=== PATIENT | female | born 1980 | race Caucasian/White ===

== ENCOUNTER → 2016-06-24 | Outpatient (CLI) | payer BC, OTHER ==
--- NOTE | 2016-06-28 12:08 | MY ---
EXAMINATION: Bilateral digital mammography utilizing CAD with left breast ultrasound. HISTORY: Pain. No comparisons made available. FINDINGS: Bilateral heterogeneously dense breast tissue. There is a two view asymmetry with a few internal calcifications noted within the outer left breast, a clip is noted within this region, likely the site of previous biopsy. No suspicious calcifications, masses or architectural distortions. No pathologic appearing lymph nodes, no abnormal skin thickening or nipple inversion. CAD highlighted regions appear normal at this time. Grayscale and color Doppler images obtained of the left breast demonstrates no abnormal mass or flui d collection. No skin thickening or abnormal color Doppler flow. IMPRESSION: BI-RADS category II - Benign finding. Continued screening according to ACR-ACS guidelines suggested. THE FALSE-NEGATIVE RATE OF MAMMOGRAM IS APPROXIMATELY 10%. MANAGEMENT OF A PALPABLE ABNORMALITY MUST BE BASED UPON CLINICAL GROUNDS. SENSITIVITY FOR DETECTION OF ABNORMALITIES IN DENSE BREASTS IS LOW. NOTE: A letter will be sent to the patient regarding findings.
== END ==
LOC: MW.MAM 11:23
PROVIDERS: ATTEND Nurse Practitioner Women's Health
DX: N64.4 Mastodynia (principal); N63 Unspecified lump in breast
CPT/HCPCS: 76641; G0204

== ENCOUNTER 2017-11-15 23:06 | Emergency (ER) | payer BC ==
--- NOTE | 2017-11-15 23:25 | EDM.PDOC ---
ED HPI GENERAL MEDICAL PROBLEM - General Chief Complaint: Chest Pain Stated Complaint: CHEST PAIN Time Seen by Provider: 11/15/17 23:17 - History of Present Illness INITIAL COMMENTS - FREE TEXT/NARRATIVE: HISTORY AND PHYSICAL: History of present illness: Patient is a 37-year-old female presents with a concern of chest pain. Patient states she is at home and felt anxious took her blood pressure noted to be 170/ 50 her mother has had a history of a stroke she has a home blood pressure machine that she is to monitor blood pressure is in no associated diaphoresis nausea vomiting palpitations other concerns on arrival her blood pressure 150/90 Review of systems: As per history of present illness and below otherwise all systems reviewed and negative. Past medical history: As per history of present illness and as reviewed below otherwise noncontributory. Surgical history: As per history of present illness and as reviewed below otherwise noncontributory. Social history: No reported history of drug or alcohol abuse. Family history: As per history of present illness and as reviewed below otherwise noncontributory. Physical exam: HEENT: Atraumatic, normocephalic, pupils reactive, negative for conjunctival pallor or scleral icterus, mucous membranes moist, throat clear, neck supple, nontender, trachea midline. Lungs: Clear to auscultation, breath sounds equal bilaterally, chest nontender. Heart: S1S2, regular, negative for clicks, rubs, or JVD. Abdomen: Soft, nondistended, nontender. Negative for masses or hepatosplenomegaly. Negative for costovertebral tenderness. Pelvis: Stable nontender. Genitourinary: Deferred. Rectal: Deferred. Extremities: Atraumatic, negative for cords or calf pain. Neurovascular unremarkable. Neuro: Awake, alert, oriented. Cranial nerves II through XII unremarkable. Cerebellum unremarkable. Motor and sensory unremarkable throughout. Exam nonfocal. Diagnostics: CBC CMP PT/INR troponin chest x-ray EKG Therapeutics: Monitor pulse oximetry Impression: #1 atypical chest pain #2 medical screening exam Definitive disposition and diagnosis as appropriate pending reevaluation and review of above. chest pain Pain Score (Numeric/FACES): 5 - Related Data Allergies Allergy/AdvReac Type Severity Reaction Status Date / Time amoxicillin Allergy Rash Verified 11/15/17 23:10 Sulfa (Sulfonamide Allergy Rash Verified 11/15/17 23:10 Antibiotics) sulfamethoxazole Allergy Vomiting Verified 11/15/17 23:10 [From Septra] trimethoprim [From ] Allergy Vomiting Verified 11/15/17 23:10 Home Meds: Home Meds Nitrofurantoin Macrocrystal [Macrodantin] 1 cap PO DAILY 11/15/17 [History] Past Medical History HEENT History: Reports: None Cardiovascular History: Reports: None Respiratory History: Reports: None Gastrointestinal History: Reports: None Genitourinary History: Reports: None [employer] History: Reports: Musculoskeletal History: Reports: None Neurological History: Reports: None Psychiatric History: Reports: None Endocrine/Metabolic History: Reports: None Hematologic History: Reports: None Immunologic History: Reports: None Oncologic (Cancer) History: Reports: None Dermatologic History: Reports: None - Infectious Disease History Infectious Disease History: Reports: None - Past Surgical History Head Surgeries/Procedures: Reports: None Female Surgical History: Reports: Hysterectomy, Other (See Below) Other Female Surgeries/Procedures: pelvic floor dysfuncton. laparoscopy Social & Family History - Family History Family Medical History: Noncontributory Neurological: Reports: CVA, Other (See Below) Other Neurological Family History: mother - Tobacco Use Smoking Status *Q: Never Smoker - Caffeine Use Caffeine Use: Reports: Coffee - Recreational Drug Use Recreational Drug Use: No ED ROS GENERAL - Review of Systems Review Of Systems: ROS reveals no pertinent complaints other than HPI. ED EXAM, GENERAL - Physical Exam Exam: See Below (See dictation) Course - Vital Signs Last Recorded V/S: Last Vital Signs Temp 36.7 C 11/15/17 23:10 Pulse 67 11/15/17 23:10 Resp 18 11/15/17 23:10 BP 157/90 H 11/15/17 23:10 Pulse Ox 98 11/15/17 23:10 - Orders/Labs/Meds Orders: Active Orders 24 hr Category Date Time Status EKG Documentation Completion [RC] STAT Care 11/15/17 23:19 Active Chest 1V Frontal [CR] Stat Exams 11/15/17 23:18 Ordered CBC WITH AUTO DIFF [HEME] Stat Lab 11/15/17 23:18 Ordered COMPREHENSIVE METABOLIC PN,CMP [CHEM] Stat Lab 11/15/17 23:18 Ordered INR,PT,PROTHROMBIN TIME [COAG] Stat Lab 11/15/17 23:18 Ordered TROPONIN I [CHEM] Stat Lab 11/15/17 23:18 Ordered Departure - Departure Time of Disposition: 23:24 Disposition: Home, Self-Care 01 Condition: Good Clinical Impression: Atypical chest pain - Discharge Information *PRESCRIPTION DRUG MONITORING PROGRAM REVIEWED*: Not Applicable *COPY OF PRESCRIPTION DRUG MONITORING REPORT IN PATIENT DARYA: Not Applicable Referrals: PCP,None [Primary Care Provider] - Additional Instructions: The following information is given to patients seen in the emergency department who are being discharged to home. This information is to outline your options for follow-up care. We provide all patients seen in our emergency department with a follow-up referral. The need for follow-up, as well as the timing and circumstances, are variable depending upon the specifics of your emergency department visit. If you don't have a primary care physician on staff, we will provide you with a referral. We always advise you to contact your personal physician following an emergency department visit to inform them of the circumstance of the visit and for follow-up with them and/or the need for any referrals to a consulting specialist. The emergency department will also refer you to a specialist when appropriate. This referral assures that you have the opportunity for followup care with a specialist. All of these measure are taken in an effort to provide you with optimal care, which includes your followup. Under all circumstances we always encourage you to contact your private physician who remains a resource for coordinating your care. When calling for followup care, please make the office aware that this follow-up is from your recent emergency room visit. If for any reason you are refused follow-up, please contact the [facility] emergency department at and asked to speak to the emergency department charge nurse. Follow-up primary medical doctor as discussed return as needed as discussed - My Orders Last 24 Hours: My Active Orders 11/15/17 23:18 Chest 1V Frontal [CR] Stat CBC WITH AUTO DIFF [HEME] Stat COMPREHENSIVE METABOLIC PN,CMP [CHEM] Stat INR,PT,PROTHROMBIN TIME [COAG] Stat TROPONIN I [CHEM] Stat 11/15/17 23:19 EKG Documentation Completion [RC] STAT - Assessment/Plan Last 24 Hours: My Active Orders 11/15/17 23:18 Chest 1V Frontal [CR] Stat CBC WITH AUTO DIFF [HEME] Stat COMPREHENSIVE METABOLIC PN,CMP [CHEM] Stat INR,PT,PROTHROMBIN TIME [COAG] Stat TROPONIN I [CHEM] Stat 11/15/17 23:19 EKG Documentation Completion [RC] STAT
[2017-11-15] MEDS ORDERED: LORazepam 1 MG Tab PO ONE (23:27)
[2017-11-15 23:54] LABS: CHLORIDE,CL 102 mmol/L (98-107); SODIUM,NA 138 mmol/L (136-145)
[2017-11-16 00:46] VITALS: BP 115/73
--- NOTE | 2017-11-17 14:14 | CR ---
EXAM DATE: 11/15/17 PATIENT'S AGE: 37 Patient: OMARI HERNANDEZ Facility: [place], [place] Site . Site : [id number] Study: XRay Chest [id number] 11:49:42 PM Ordering Physician: Danielle Alonzo Final Report: Indication: Chest pain Technique: A single AP portable view of the chest was obtained. Comparison: None Findings: The heart is normal in size. The lungs are clear. No infiltrate, pleural effusion, or pneumothorax is identified. Impression: No acute cardiopulmonary process. Dictated by Geno Kasper MD @ Nov 15 2017 11:53PM (Electronic Signature) Report Signed by Proxy. NAVEEN
== END 2017-11-16 00:43 | disposition home or self-care (01) ==
LOC: MW.ED 23:06
DX: R07.89 Other chest pain (principal); Z88.8 Allergy status to other drugs, medicaments and biological substances; Z88.2 Allergy status to sulfonamides
CPT/HCPCS: 36415; 71045; 71045-26; 80053; 84484; 85025; 85610; 93005; 99282; 99285-25